=== PATIENT | female | born 1975 | race Caucasian/White ===

== ENCOUNTER → 2018-02-26 | Outpatient (CLI) | payer BC ==
[2018-02-26 11:41] LABS: BASOPHILS % 0.7 % (0.0-2.0); EOSINOPHILS % 2.9 % (0.0-5.0); HEMATOCRIT. 41.1 % (36.0-48.0); HEMOGLOBIN. 13.9 g/dL (12.0-16.0); MEAN CORPUSCULAR HEMOGLOBIN 29.8 pg (28.0-32.0); MEAN CORPUSCULAR VOLUME 88.1 fL (81.0-99.0); MEAN PLATELET VOLUME 8.5 fl (7.4-10.4); MONOCYTES % 7.1 % (2.0-8.0); NEUTROPHILS % 65.3 % (40.0-76.0); PLATELET 269 x1000/uL (130-400); RED BLOOD CELL COUNT 4.66 mill/uL (4.2-5.4); RED CELL DISTRIBUTION WIDTH 13.1 % (11.6-14.6)
[2018-02-26 12:20] LABS: CHLORIDE 106 mEq/L (98-107)
[2018-02-26 12:28] LABS: HDL CHOLESTEROL 79 mg/dL (40-59)
[2018-02-26 12:30] LABS: LDL CHOLESTEROL 91 mg/dL (5-100)
[2018-02-26 12:31] LABS: T4 FREE 0.84 ng/dL (0.76-1.46)
== END | disposition home or self-care (01) ==
LOC: RAD 11:20
PROVIDERS: ATTEND Internal Medicine
DX: M77.31 Calcaneal spur, right foot (principal); M77.32 Calcaneal spur, left foot; E04.9 Nontoxic goiter, unspecified
CPT/HCPCS: 36415; 73630; 80061; 80076; 82248; 84439; 84443

== ENCOUNTER → 2018-06-29 | Outpatient (CLI) | payer BC ==
[2018-06-29 14:37] LABS: BASOPHILS % 0.5 % (0.0-2.0); EOSINOPHILS % 2.5 % (0.0-5.0); HEMATOCRIT. 39.8 % (36.0-48.0); HEMOGLOBIN. 13.6 g/dL (12.0-16.0); LYMPHOCYTES % 29.5 % (20.0-50.0); MEAN CORPUSCULAR HEMOGLOBIN 29.8 pg (28.0-32.0); MEAN CORPUSCULAR VOLUME 87.6 fL (81.0-99.0); MEAN PLATELET VOLUME 8.7 fl (7.4-10.4); MONOCYTES % 7.5 % (2.0-8.0); PLATELET 269 x1000/uL (130-400); RED BLOOD CELL COUNT 4.55 mill/uL (4.2-5.4)
[2018-06-29 14:43] LABS: CHLORIDE 109 mEq/L (98-107)
[2018-06-29 14:51] LABS: LDL CHOLESTEROL 83 mg/dL (5-100)
[2018-06-29 14:52] LABS: HDL CHOLESTEROL 80 mg/dL (40-59)
[2018-06-29 14:53] LABS: T4 FREE 1.01 ng/dL (0.76-1.46)
== END | disposition home or self-care (01) ==
LOC: LAB 13:51
PROVIDERS: ATTEND Internal Medicine
DX: E78.5 Hyperlipidemia, unspecified (principal); R22.42 Localized swelling, mass and lump, left lower limb
CPT/HCPCS: 36415; 73630; 80048; 80061; 80076; 84439; 84443

== ENCOUNTER → 2018-07-06 | Outpatient (CLI) | payer BC | END | disposition home or self-care (01) | LOC: US 09:19 | PROVIDERS: ATTEND Internal Medicine | DX: E04.2 Nontoxic multinodular goiter (principal); M77.30 Calcaneal spur, unspecified foot | CPT/HCPCS: 76536 ==

== ENCOUNTER → 2019-06-23 | Outpatient (CLI) | payer OTHER | END | disposition home or self-care (01) | LOC: RAD 10:37 | PROVIDERS: ATTEND Family Medicine Adult Medicine | DX: S02.85XA Fracture of orbit, unspecified, initial encounter for closed fracture (principal); X58.XXXA Exposure to other specified factors, initial encounter; Y93.89 Activity, other specified; Y92.89 Other specified places as the place of occurrence of the external cause; Y99.8 Other external cause status | CPT/HCPCS: 70200 ==

== ENCOUNTER 2019-07-06 10:49 | Emergency (ER) | payer BC, OTHER ==
[~2019-07-06] VITALS: Ht 160 cm; Wt 60.0 kg
[2019-07-06 12:02] LABS: CLARITY URINE CLEAR (CLEAR); COLOR URINE YELLOW (YELLOW); KETONES URINE 1+ (NEGATIVE); LEUKOCYTE ESTERASE URINE 2+ (NEGATIVE); NITRITE URINE NEGATIVE (NEGATIVE); OCCULT BLOOD URINE TRACE (NEGATIVE); PROTEIN URINE NEGATIVE (NEGATIVE); UROBILINOGEN URINE 0.2 E.U./dL (0.2-1.0)
[2019-07-06 12:04] LABS: HCG SCREEN NEGATIVE
[2019-07-06 12:05] LABS: PROTHROMBIN TIME 10.7 sec (9.6-11.0)
[2019-07-06 12:06] LABS: CHLORIDE 105 mEq/L (98-107)
[2019-07-06 12:10] LABS: BASOPHILS % 0.5 % (0.0-2.0); EOSINOPHILS % 1.7 % (0.0-5.0); HEMATOCRIT. 39.4 % (36.0-48.0); HEMOGLOBIN. 13.5 g/dL (12.0-16.0); LYMPHOCYTES % 29.7 % (20.0-50.0); MEAN CORPUSCULAR VOLUME 87.5 fL (81.0-99.0); MEAN PLATELET VOLUME 8.9 fl (7.4-10.4); MONOCYTES % 7.7 % (2.0-8.0); NEUTROPHILS % 60.4 % (40.0-76.0); PLATELET 258 x1000/uL (130-400); RED CELL DISTRIBUTION WIDTH 13.5 % (11.6-14.6)
[2019-07-06] MEDS ORDERED: CEFTRIAXONE 1 G PREMIX 50 ML IV NR (12:45)
[2019-07-06] MEDS ORDERED: IOHEXOL-300 100 ML BOTTLE ONE (13:22)
[2019-07-06] MEDS ORDERED: VISCOUS LIDOCAINE 2% 15 ML UDC MM STA (13:23)
[2019-07-06] MEDS ORDERED: MAGNESIUM/ALUMINUM HYDROXIDE/SIMETHICONE 30ML UDC PO ONE (13:30)
[2019-07-06 16:01] VITALS: BP 102/66
== END 2019-07-06 17:02 | disposition home or self-care (01) ==
LOC: ER 10:49 → CANBEDREQ 17:11
DX: R10.12 Left upper quadrant pain (principal); N39.0 Urinary tract infection, site not specified
CPT/HCPCS: 36415; 71045; 74177; 76705; 80053; 81003; 83605; 83690; 84484; 84703; 85025; 85610; 87086; 93005; 96365; 99285; J0696; Q9967

== ENCOUNTER → 2021-01-16 | Outpatient (CLI) | payer BC ==
[2021-01-16 14:26] LABS: BASOPHILS % 0.5 % (0.0-2.0); EOSINOPHILS % 2.2 % (0.0-5.0); HEMATOCRIT. 41.5 % (36.0-48.0); HEMOGLOBIN. 13.9 g/dL (12.0-16.0); LYMPHOCYTES % 24.5 % (20.0-50.0); MEAN CORPUSCULAR HEMOGLOBIN 29.1 pg (28.0-32.0); MEAN CORPUSCULAR VOLUME 87.1 fL (81.0-99.0); MEAN PLATELET VOLUME 8.1 fl (7.4-10.4); MONOCYTES % 6.1 % (2.0-8.0); NEUTROPHILS % 66.7 % (40.0-76.0); PLATELET 286 x1000/uL (130-400); RED BLOOD CELL COUNT 4.77 mill/uL (4.2-5.4)
[2021-01-16 14:58] LABS: CHLORIDE 107 mEq/L (98-107)
[2021-01-16 15:08] LABS: LDL CHOLESTEROL 104 mg/dL (5-100)
[2021-01-16 15:11] LABS: HDL CHOLESTEROL 74 mg/dL (40-59); T4 FREE 1.02 ng/dL (0.76-1.46)
== END | disposition home or self-care (01) ==
LOC: LAB 13:53
PROVIDERS: ATTEND Internal Medicine
DX: Z00.00 Encounter for general adult medical examination without abnormal findings (principal)
CPT/HCPCS: 36415; 80048; 80061; 80076; 82306; 84439; 84443; 85025; 85651

== ENCOUNTER → 2021-01-23 | Outpatient (CLI) | payer BC | END | disposition home or self-care (01) | LOC: RAD 13:52 | PROVIDERS: ATTEND Internal Medicine | DX: L03.113 Cellulitis of right upper limb (principal); E07.89 Other specified disorders of thyroid | CPT/HCPCS: 73030; 93971 ==

== ENCOUNTER → 2021-02-06 | Outpatient (CLI) | payer BC | END | disposition home or self-care (01) | LOC: MAMMO 09:59 | PROVIDERS: ATTEND Internal Medicine | DX: Z12.31 Encounter for screening mammogram for malignant neoplasm of breast (principal) | CPT/HCPCS: 77063; 77067 ==

== ENCOUNTER → 2022-07-22 | Outpatient (CLI) | payer BC ==
[2022-07-22 10:55] LABS: BASOPHILS % 0.6 % (0.0-2.0); EOSINOPHILS % 1.7 % (0.0-5.0); HEMATOCRIT. 38.6 % (36.0-48.0); HEMOGLOBIN. 12.8 g/dL (12.0-16.0); LYMPHOCYTES % 23.7 % (20.0-50.0); MEAN CORPUSCULAR HEMOGLOBIN 29.3 pg (28.0-32.0); MEAN PLATELET VOLUME 8.6 fl (7.4-10.4); MONOCYTES % 5.2 % (2.0-8.0); NEUTROPHILS % 68.8 % (40.0-76.0); PLATELET 288 x1000/uL (130-400); RED BLOOD CELL COUNT 4.39 mill/uL (4.2-5.4); RED CELL DISTRIBUTION WIDTH 13.5 % (11.6-14.6)
[2022-07-22 11:18] LABS: CHLORIDE 108 mEq/L (98-107)
[2022-07-22 11:36] LABS: HDL CHOLESTEROL 74 mg/dL (40-59); LDL CHOLESTEROL 85 mg/dL (5-100)
== END | disposition home or self-care (01) ==
LOC: LAB 10:13
PROVIDERS: ATTEND Internal Medicine
DX: S93.401A Sprain of unspecified ligament of right ankle, initial encounter (principal); Z00.01 Encounter for general adult medical examination with abnormal findings; M77.51 Other enthesopathy of right foot and ankle; M25.571 Pain in right ankle and joints of right foot; X58.XXXA Exposure to other specified factors, initial encounter; Y93.89 Activity, other specified; Y92.89 Other specified places as the place of occurrence of the external cause; Y99.8 Other external cause status
CPT/HCPCS: 36415; 73610; 73630; 80048; 80061; 80076; 82306; 84436; 84443; 85025

== ENCOUNTER → 2024-04-05 | Outpatient (CLI) | payer BC ==
[2024-04-05 13:28] LABS: BASOPHILS % 0.5 % (0.0-2.0); EOSINOPHILS % 1.9 % (0.0-5.0); HEMATOCRIT. 37.4 % (36.0-48.0); HEMOGLOBIN. 11.9 g/dL (12.0-16.0); LYMPHOCYTES % 27.5 % (20.0-50.0); MEAN CORPUSCULAR HEMOGLOBIN 26.6 pg (28.0-32.0); MEAN CORPUSCULAR HGB CONC 31.8 g/dL (31.0-37.0); MEAN CORPUSCULAR VOLUME 83.7 fL (81.0-99.0); MEAN PLATELET VOLUME 8.3 fl (7.4-10.4); MONOCYTES % 8.2 % (2.0-8.0); NEUTROPHILS % 61.9 % (40.0-76.0); PLATELET 334 x1000/uL (130-400); RED BLOOD CELL COUNT 4.46 mill/uL (4.2-5.4); RED CELL DISTRIBUTION WIDTH 14.3 % (11.6-14.6); WHITE BLOOD COUNT 6.7 x1000/uL (4.5-11.0)
[2024-04-05 13:55] LABS: CHLORIDE 106 mEq/L (98-107); POTASSIUM 4.1 mEq/L (3.5-5.1); SODIUM 140 mEq/L (136-145)
[2024-04-05 13:56] LABS: CALCIUM 9.7 mg/dL (8.7-10.4); CARBON DIOXIDE 27 mEq/L (21-32)
[2024-04-05 14:01] LABS: CREATININE 0.8 mg/dL (0.6-1.0); GLUCOSE 96 mg/dL (70-105); TRIGLYCERIDE 85 mg/dL (0-150); UREA NITROGEN BLOOD 11 mg/dL (9-23)
[2024-04-05 14:02] LABS: LDL CHOLESTEROL 93 mg/dL (5-100)
[2024-04-05 14:03] LABS: ALANINE AMINOTRANSFERASE 8 IU/L (10-49); ALBUMIN 4.4 g/dL (3.2-4.8); ASPARTATE AMINOTRANSFERASE 11 IU/L (<34); BILIRUBIN TOTAL 1.2 mg/dL (0.1-1.0); CHOLESTEROL 181 mg/dL (<200); HDL CHOLESTEROL 66 mg/dL (>65); PROTEIN TOTAL 7.6 g/dL (6.0-8.3)
[2024-04-05 14:20] LABS: T4 FREE 1.11 ng/dL (0.89-1.76); THYROID STIMULATING HORMONE 2.92 uIU/mL (0.55-4.78)
== END | disposition home or self-care (01) ==
LOC: RAD 12:59
PROVIDERS: ATTEND Internal Medicine
DX: I10 Essential (primary) hypertension (principal); E11.9 Type 2 diabetes mellitus without complications; E78.5 Hyperlipidemia, unspecified; E03.9 Hypothyroidism, unspecified; R22.9 Localized swelling, mass and lump, unspecified
CPT/HCPCS: 36415; 74018; 80053; 80061; 83036; 84439; 84443; 85025

== ENCOUNTER → 2024-04-06 | Outpatient (CLI) | payer BC | END | disposition home or self-care (01) | LOC: US 07:49 | PROVIDERS: ATTEND Internal Medicine | DX: R19.00 Intra-abdominal and pelvic swelling, mass and lump, unspecified site (principal); R10.9 Unspecified abdominal pain | CPT/HCPCS: 76700 ==